=== PATIENT | female | born 2000 | race African-American/Black ===

== ENCOUNTER 2021-06-14 18:57 | Emergency (ER) | payer OTHER, SELFPAY | END 2021-06-14 19:40 | disposition home or self-care (01) | LOC: ERS 18:57 | DX: S16.1XXA Strain of muscle, fascia and tendon at neck level, initial encounter (principal); S20.212A Contusion of left front wall of thorax, initial encounter; V49.40XA Driver injured in collision with unspecified motor vehicles in traffic accident, initial encounter | CPT/HCPCS: 99283 ==

== ENCOUNTER 2024-05-22 19:59 | Emergency (ER) | payer SELFPAY ==
[2024-05-22 20:26] LABS: Bilirubin Negative (Negative); Blood, Urine Negative (Negative); CAUTI Indications for Culture Dysuria,urgency,freq; Clarity Turbid (Clear); Glucose, Urine (Dipstick) Normal (Negative); Ketone, Urine Negative (Negative); Leukocyte 75 Leu/uL (Negative); Nitrite 2+ (Negative); Protein, Urine (Dipstick) Negative (Neg-Trace); RBC/HPF 0-3 HPF (0-3); Urobilinogen Normal mg/dL (Less than 2)
[2024-05-22] MEDS ORDERED: Ibuprofen 200 MG TAB ONE (20:28)
[2024-05-22] MEDS ORDERED: Acetaminophen 500 MG TAB ONE (20:28)
[2024-05-22 20:29] LABS: Bacteria/HPF 1+ HPF (None Seen)
[2024-05-22 20:30] LABS: Urine Culture Reflex No No
== END 2024-05-22 20:55 | disposition home or self-care (01) ==
LOC: ERS 19:59
DX: J11.1 Influenza due to unidentified influenza virus with other respiratory manifestations (principal); N39.0 Urinary tract infection, site not specified
CPT/HCPCS: 81001; 87428; 99283

== ENCOUNTER 2025-01-09 22:50 | Emergency (ER) | payer OTHER ==
[2025-01-10 00:25] LABS: #Basophils 0.03 10x3/uL (0.0-0.2); #Eosinophils 0.14 10x3/uL (0.0-0.7); #Monocytes 0.57 10x3/uL (0.11-0.59); #Neutrophils 2.70 10x3/uL (1.40-6.50); %Basophils 0.4 % (0.0-1.0); %Eosinophils 2.1 % (0.0-10.0); %Lymphocytes 49.4 % (21.0-51.0); %Monocytes 8.4 % (0.0-10.0); %Neutrophils 39.6 % (42.0-75.0); Hematocrit 41.0 % (36.0-47.0); Hemoglobin 13.2 g/dL (12.0-16.0); Mean Corpuscular Hemoglobin 28.1 pg (27.0-31.0); Mean Corpuscular Volume 87.2 fL (78.0-98.0); Platelet Count 249 10x3/uL (130-400); Red Blood Cell (RBC) Count 4.70 mill/uL (4.20-5.40); White Blood Cell (WBC) Count 6.82 10x3/uL (4.8-10.8)
[2025-01-10 00:40] LABS: BHCG - Serum Negative (NEGATIVE); Pregs Control Background? CLEAR/WHITE (CLR/WHITE); Pregs Control Bar Appear? YES (CONTROL BAR)
[2025-01-10 00:41] LABS: ALT (SGPT) 14 U/L (Less than 34); AST (SGOT) 21 U/L (11-34); Albumin 3.6 g/dL (3.1-4.5); Alkaline Phosphatase 111 U/L (40-110); Anion Gap 13 mmol/L (10-20); BUN (Urea Nitrogen) 17 mg/dL (7.0-18.7); Bilirubin, Total 0.3 mg/dL (0.3-1.2); Calc. Creatinine Clearance 0 mL/min (70-130); Calcium 8.7 mg/dL (7.8-10.44); Carbon Dioxide 23 mmol/L (22-29); Chloride 109 mmol/L (98-107); Globulin 3.5 g/dL (2.4-3.5); Glucose 102 mg/dL (70-105); Potassium 4.2 mmol/L (3.5-5.1); Sodium 141 mmol/L (136-145)
[2025-01-10 01:01] LABS: Bacteria/HPF 4+ HPF (None Seen); CAUTI Indications for Culture Pelvic or flank pain; Glucose, Urine (Dipstick) Normal (Negative); Leukocyte 75 Leu/uL (Negative); Protein, Urine (Dipstick) Negative (Neg-Trace); RBC/HPF 0-3 HPF (0-3); Specific Gravity, Urine 1.033 (1.002-1.036); WBC/HPF Greater than 50 HPF (0-3)
[2025-01-10 01:03] LABS: Urine Culture Reflex Yes Yes
[2025-01-10] MEDS ORDERED: Acetaminophen 500 MG TAB ONE (01:26)
[2025-01-10] MEDS ORDERED: Sulfameth/Trimethoprim DS 800-160mg TAB ONE (05:25)
[2025-01-10] MEDS ORDERED: Iopamidol-370 76% 500 ML MDV (1 ML CHARGE) ONE (10:00)
== END 2025-01-10 07:28 | disposition home or self-care (01) ==
LOC: ERS 22:50
DX: N39.0 Urinary tract infection, site not specified (principal)
CPT/HCPCS: 36415; 74177; 76705; 80053; 81001; 84703; 85025; 87077; 87086; 87186